=== PATIENT | male | born 1985 | race African-American/Black ===

== ENCOUNTER 2018-06-21 10:53 | Emergency (ER) | payer SELFPAY ==
[2018-06-21 10:55] VITALS: BP 160/112; PULSE 79; PULSE 82; RESP 14; RESP 17; TEMP 37; O2SAT 98; BMI 34.3
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
[2018-06-21] MEDS: 0.9% Normal Saline 1,000 ML 999 ML IV (12:27)
[2018-06-21] MEDS: proMETHazine 25 MG/ML Syringe 12.5 MG IV (12:34)
[2018-06-21 13:22] VITALS: BP 151/96; PULSE 98; RESP 19; O2SAT 99
[2018-06-21 13:49] VITALS: BP 168/98; PULSE 74; RESP 18; O2SAT 99
== END 2018-06-21 13:49 | disposition home or self-care (01) ==
LOC: ED 12:30
PROVIDERS: Emergency Provider Emergency Medicine
DX: G44.309 Post-traumatic headache, unspecified, not intractable (principal); Z87.820 Personal history of traumatic brain injury; Z79.899 Other long term (current) drug therapy
CPT/HCPCS: 70450; 96361; 96374; 99282; J7030

== ENCOUNTER 2019-02-15 23:24 | Emergency (ER) | payer SELFPAY ==
[2019-02-15 23:26] VITALS: BP 166/125; PULSE 87; RESP 16; TEMP 36.6; O2SAT 97; BMI 33.3
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
[2019-02-16 00:26] VITALS: BP 137/100; PULSE 85; RESP 18; O2SAT 100
== END 2019-02-16 00:26 | disposition home or self-care (01) ==
PROVIDERS: Emergency Provider Emergency Medicine
DX: T17.1XXA Foreign body in nostril, initial encounter (principal); Z87.820 Personal history of traumatic brain injury
CPT/HCPCS: 30300; 10120; 99282